=== PATIENT | female | born 1930 | race Caucasian/White ===

== ENCOUNTER 2017-03-06 08:00 | Outpatient (CLI) | payer MEDICARE, OTHER ==
[2017-03-06 19:18] LABS: BASOPHILS % (AUTO) 0.4 %; EOSINOPHILS # (AUTO) 0.3 10^3/uL (0.0-0.7); EOSINOPHILS % (AUTO) 2.8 %; HCT - HEMATOCRIT 35.6 % (37.0-47.0); HGB - HEMOGLOBIN 11.3 g/dL (12.0-16.0); LYMPHOCYTES % (AUTO) 22.7 %; MEAN CORPUSCULAR HEMOGLOBIN 25.3 pg (27.0-31.0); MEAN CORPUSCULAR HGB CONC 31.8 g/dL (32.0-36.0); MEAN CORPUSCULAR VOLUME 79.5 fL (81.0-99.0); MEAN PLATELET VOLUME 7.6 fL (7.9-10.8); MONOCYTES # (AUTO) 0.8 10^3/uL (0.0-1.0); MONOCYTES % (AUTO) 8.7 %; NEUTROPHILS # (AUTO) 5.9 10^3/uL (1.5-6.6); NEUTROPHILS % (AUTO) 65.4 %; RED BLOOD COUNT 4.48 10^6/uL (4.20-5.40); RED CELL DISTRIBUTION WIDTH 16.4 % (12.0-15.0)
[2017-03-06 19:21] LABS: ALBUMIN/GLOBULIN RATIO 0.8 (1.0-2.2); BILIRUBIN,TOTAL 0.5 mg/dL (0.2-1.0); BUN - BLOOD UREA NITROGEN 22 mg/dL (6-20); CALCIUM 9.3 mg/dL (8.5-10.3); CARBON DIOXIDE - CO2 27 mmol/L (21-32); CHLORIDE 106 mmol/L (101-111); CREATININE 0.7 mg/dL (0.4-1.0); GFR - MDRD 79 (>89); GLUCOSE 97 mg/dL (70-100); POTASSIUM 4.4 mmol/L (3.5-5.0); SODIUM 142 mmol/L (135-145)
[2017-03-06 19:35] LABS: THYROID STIMULATING HORMONE 0.99 uIU/mL (0.34-5.60)
== END 2017-03-06 08:01 | disposition home or self-care (01) ==
LOC: LAB.WCP 08:00
PROVIDERS: ATTEND Family Medicine
DX: E03.9 Hypothyroidism, unspecified (principal); R63.0 Anorexia; E53.8 Deficiency of other specified B group vitamins; R30.0 Dysuria
CPT/HCPCS: 36415; 80053; 82607; 84443; 85025; 87086

== ENCOUNTER 2017-05-26 12:39 | Emergency (ER) | payer MEDICARE, OTHER ==
[2017-05-26 12:49] VITALS: BP 147/78
--- NOTE | 2017-05-26 13:08 | ED Physician Documentation ---
History of Present Illness - Stated complaint Stated Complaint: LOWER BACK RASH - Chief complaint Chief Complaint: General - History obtained from History obtained from: Patient, Caregiver - History of Present Illness Timing: Other (Caregiver noticed a rash on the right back that has wrapped around to the right groin starting 2 days ago. The patient is not complaining of denies any pain, although most of the history is from the caregiver given her underlying dementia.) Review of Systems Unable to obtain: Dementia PD PAST MEDICAL HISTORY - Past Medical History Cardiovascular: None Respiratory: None Neuro: Dementia Endocrine/Autoimmune: HyPOthyroidism GI: None : Chronic bladder infection HEENT: Chronic vision loss Psych: Depression Musculoskeletal: Osteoarthritis Derm: None - Past Surgical History Past Surgical History: Yes Ortho: Hip replacement HEENT: Tonsil/Adenoidectomy - Present Medications Home Medications: Ambulatory Orders Medication Instructions Recorded Confirmed Atorvastatin [Lipitor] 10 mg PO QPM 12/10/13 01/06/16 Calcium Carbonate/Vitamin D3 1 tab PO DAILY 12/10/13 01/06/16 [Calcium 600-Vit D3 200 Tablet] Levothyroxine [Synthroid] 75 mcg PO DAILY 12/10/13 01/06/16 Potassium Chloride [K-Dur] 20 meq PO DAILY 12/10/13 01/06/16 Sertraline [Zoloft] 100 mg PO DAILY 12/10/13 01/06/16 Aspirin [Ecotrin] 81 mg PO DAILY 08/03/14 01/06/16 Multivitamin [Theragran] 1 tab PO DAILY 08/03/14 01/06/16 Furosemide [Lasix] 20 mg PO DAILY 12/13/15 01/06/16 Mirtazapine [Remeron] 15 mg PO QPM 12/13/15 01/06/16 Cyanocobalamin (Vitamin B-12) 1,000 units IM .MONTHLY 01/06/16 01/06/16 [Cyanocobalamin Injection] Lidocaine Patch 5% [Lidoderm Patch] 1 patch TOP DAILY 01/06/16 01/06/16 Albuterol Sulfate [Proair Hfa 2 puffs INH Q4H PRN #2 01/10/16 01/06/16 Inhaler] Enoxaparin [Lovenox] 40 mg SUBQ Q24H #30 syringe 01/10/16 oxyCODONE [Roxicodone] 2.5 mg PO Q4HR PRN #30 tablet 01/10/16 Acyclovir 800 mg PO 5XD 10 Days tablet 05/26/17 predniSONE [Deltasone] 20 mg PO [id number] #21 tab 05/26/17 - Allergies Allergies/Adverse Reactions: Allergies Allergy/AdvReac Type Severity Reaction Status Date / Time No Known Drug Allergies Allergy Verified 05/26/17 12:49 - Social History Does the pt smoke?: No Smoking Status: Former smoker Does the pt drink ETOH?: No Does the pt have substance abuse?: No - POLST Patient has POLST: No PD ED PE NORMAL - Vitals Vital signs reviewed: Yes - General General: Other (Alert and pleasant but oriented to person only.) - Abdomen Abdomen: Soft, Non tender - Derm Derm: Other (Classic herpes zoster, right low back.) - Neuro Neuro: Normal speech - Psych Psych: Normal mood, Normal affect Results - Vitals Vitals: Vital Signs - 24 hr 05/26/17 12:42 Temperature 36.7 C Heart Rate 109 H Respiratory 18 Rate Blood Pressure 147/78 H O2 Saturation 96 Oxygen O2 Source [With Activity] Nasal cannula O2 Source [Without Activity] Nasal cannula O2 Source Room air Departure - Departure Disposition: Home, Self Care Clinical Impression: Herpes zoster Qualifiers: Herpes zoster complications: without complications Qualified Code(s): B02.9 - Zoster without complications Condition: Good Record reviewed to determine appropriate education?: Yes Instructions: ED Shingles Prescriptions: Acyclovir 800 mg PO 5XD 10 Days tablet predniSONE [Deltasone] 20 mg PO [id number] #21 tab Comments: Call your doctor to arrange a follow-up appointment, make the next available appointment. In the interim, return anytime if worse or if new symptoms develop. Your blood pressure was elevated today on check into the emergency department. This does not mean that you have hypertension, it is a common phenomenon to come to the emergency department and have elevated blood pressure. I recommend that you see your primary care physician within the week to have it rechecked when you are feeling better.
== END 2017-05-26 13:11 | disposition home or self-care (01) ==
LOC: ED 12:39
DX: B02.9 Zoster without complications (principal); R03.0 Elevated blood-pressure reading, without diagnosis of hypertension; F03.90 Unspecified dementia, unspecified severity, without behavioral disturbance, psychotic disturbance, mood disturbance, and anxiety; E03.9 Hypothyroidism, unspecified; M19.90 Unspecified osteoarthritis, unspecified site; Z87.891 Personal history of nicotine dependence
CPT/HCPCS: 99283